=== PATIENT | female | born 1965 | race Caucasian/White ===

== ENCOUNTER → 2016-05-25 | Outpatient (CLI) | payer BC ==
--- NOTE | 2016-05-25 13:34 | MAMMOGRAPHY REPORT ---
BILATERAL DIGITAL SCREENING MAMMOGRAM TOMOSYNTHESIS WITH CAD: 05/25/2016 CLINICAL HISTORY: Routine screening. Patient has no complaints. TECHNIQUE: Breast tomosynthesis in addition to standard 2D mammography was performed. Current study was also evaluated with a Computer Aided Detection (CAD) system. COMPARISON: Comparison is made to exams dated: 06/02/2015 mammogram, 05/20/2015 mammogram, 05/14/2014 m ammogram, 05/13/2013 mammogram, 05/07/2012 mammogram, and 04/27/2011 mammogram - [facility] enter. BREAST COMPOSITION: The tissue of both breasts is heterogeneously dense, which may obscure small ma sses. FINDINGS: No suspicious masses, calcifications, or areas of architectural distortion are noted in e ither breast. There has been no significant interval change compared to prior exams. IMPRESSION: ACR BI-RADS CATEGORY 1: NEGATIVE There is no mammographic evidence of malignancy. A 1 year screening mammogram is recommended. The p atient will receive written notification of the results. Approximately 10% of breast cancers are not detected with mammography. A negative mammographic repor t should not delay biopsy if a clinically suggestive mass is present. Lissa Pantoja M.D. /:05/25/2016 12:35:21 Air Bag Builder: Romero ZAYAS(R)(M), [facility] letter sent: Normal 1/2 BI-RADS Code: ACR BI-RADS Category 1: Negative
== END | disposition home or self-care (01) ==
LOC: C.MAMM 09:07
PROVIDERS: ATTEND Obstetrics & Gynecology
DX: Z12.31 Encounter for screening mammogram for malignant neoplasm of breast (principal)

== ENCOUNTER → 2017-04-12 | Outpatient (CLI) | payer OTHER ==
[~2017-04-12] MED LIST: ASPI81TA28 PO; ATOR-22 PO; ATV/1 PO; CHOL1000 PO; DULO60CA44 PO; KETO10TA PO; LISI-725 PO; METF-384 PO; MTR800 PO; TRAM-10 PO; ZOLP5TAB PO
[2017-04-12 13:50] LABS: BASO % 0.6 %; BASO ABS # 0.04 K/uL (0-0.2); EOS % 1.5 %; EOS ABS # 0.11 K/uL (0-0.5); HEMATOCRIT 39.1 % (37-47); HEMOGLOBIN 12.7 g/dL (12.0-16.0); IG# 0.01 K/uL (0.00-0.02); LYMPH % 31.7 %; MEAN CELL VOLUME 84.3 fL (80-100); MEAN CORPUSCULAR HEMOGLOBIN 27.4 pg (25-34); MEAN CORPUSCULAR HGB CONC 32.5 g/dl (32-36); MEAN PLATELET VOLUME 9.4 fL (7.4-10.4); MONO % 6.9 %; NEUT % 59.2 %; PLATELET COUNT 348 K/uL (130-400); RED CELL DISTRIBUTION WIDTH CV 13.6 % (11.5-14.5); RED CELL DISTRIBUTION WIDTH SD 41.6 fL (36.4-46.3); WHITE BLOOD COUNT 7.26 K/uL (4.8-10.8)
[2017-04-12 14:17] LABS: ALT/SGPT 19 U/L (12-78); AST/SGOT 9 U/L (15-37); BLOOD UREA NITROGEN 19 mg/dl (7-18); CALCIUM 9.3 mg/dl (8.5-10.1); CARBON DIOXIDE 27 mmol/L (21-32); CREATININE 0.86 mg/dl (0.60-1.20); GLUCOSE 84 mg/dl (70-99); POTASSIUM 4.4 mmol/L (3.5-5.1); SODIUM 135 mmol/L (136-145)
[2017-04-12 14:19] LABS: ALKALINE PHOSPHATASE 62 U/L (45-117); TOTAL PROTEIN 7.5 gm/dl (6.4-8.2)
== END | disposition home or self-care (01) ==
LOC: C.LABBC 11:43
PROVIDERS: ATTEND Internal Medicine
DX: M54.5 Low back pain (principal)

== ENCOUNTER → 2017-04-18 | Day surgery (SDC) | payer OTHER ==
[2017-04-12 12:19] VITALS: Ht 162.6 cm; Wt 65.9 kg
[~2017-04-18] VITALS: Ht 162.6 cm; Wt 65.9 kg
[~2017-04-18] MED LIST changes: +ATROPINE SULFATE 0.1 MG/ML 5ML SYR IV PRN; +CEFAZOLIN 1000MG IV PUSH 7.5 ML IV SCH; +CEFAZOLIN SOD 1 GM VIAL ONE; +CEFAZOLIN SOD 1000MG/7.5 ML IV PUSH IV SCH; +DEXAMETHASONE SOD INJ 4 MG/ML VIAL ONE; +EpHEDrine SULFATE INJ 50 MG/ML AMP IV PRN; +EpINEphrine INJ 1MG/ML AMP 1 MG/ML AMP ONE; +FENTANYL CITRATE INJ 50 MCG/1 ML 2 ML VIAL ONE; +FLUMAZENIL 0.1 MG/1 ML 10 ML VIAL IV PRN; +HYDROCODONE/ACETAMIN 5/325MG TAB PO PRN; +HYDROmorphone INJ 2 MG/ML SYR/VIAL IV PRN; +KETOROLAC TROMETHAMINE 30 MG/ML VIAL ONE; +LABETALOL HCL IV 5 MG/ML 20ML IV PRN; +LACTATED RINGER'S 1000ML 1,000 ML IV SCH; +LIDOCAINE HCL 2% 2 ML VIAL (20MG/ML) ONE; +MIDAZOLAM HCL 1 MG/ML 2ML VIAL ONE; +NALOXONE HCL 0.4 MG/1 ML VIAL/CARP IV PRN; +ONDANSETRON INJ 2 MG/ML 2 ML VIAL IV PRN; +ONDANSETRON INJ 2 MG/ML 2 ML VIAL ONE; +PHENYLEPHRINE 100MCG/ML 5ML SYR IV PRN; +PROPOFOL IV EMULSION 10 MG/ML 20 ML VIAL IV ONE; +ROPIVACAINE 0.5% 5 MG/ML 30 ML VIAL ONE; +SODIUM CHLORIDE 0.9% 1000ML 1,000 ML IV SCH
--- NOTE | 2017-04-18 11:54 | History & Physical Bridge - SC ---
H&P Re-Evaluation Bridge Note: I have examined the patient, reviewed the History & Physical and in the interval since the performance of the History & Physical I have noted the following changes of clinical significance: No changes noted
--- NOTE | 2017-04-18 14:06 | [facility] Post Operative Brief Note ---
Immediate Operative Summary Operative Date Apr 18, 2017. Pre-Operative Diagnosis Right Knee ACL Rupture Post-Operative Diagnosis same Procedure(s) Performed Right Knee Arthroscopic Anterior Cruciate Ligament Reconstruction with Hamstring Autograft Surgeon Dr. Dat Spencer Disc Pad Grinder Surgeon(s) Law Tellez PA-C Estimated Blood Loss MINIMAL Findings Consistent with Post-Op Diagnosis Specimens none Drains None Anesthesia Type General Regional Complication(s) none Disposition Accompanied Pt To Recovery: yes Disposition: Recovery Room / PACU
--- NOTE | 2017-04-18 14:07 | Discharge Instructions-SurgCtr ---
Discharge Instructions Date of Service Apr 18, 2017. Visit Reason for Visit: Right Knee Acl Rupture Discharge Discharge Diagnosis / Problem: Right ACL tear Discharge Goals Goal(s): Decrease discomfort, Improve function, Therapeutic intervention Medications Stopped Medications Name(s): No blood thinners Activity Recommendations Activity Limitations: per Instructions/Follow-up section Weightbearing Status: Right weightbearing (as tolerated with brace ) Anesthesia . Post Anesthesia Instructions: If you have had General Anesthesia or IV Sedation: * Do not drive today. * Resume driving when surgeon permits. * Do not make important decisions or sign legal documents today. * Call surgeon for: 1. Temperature elevations greater than 101 degrees F. 2. Uncontrollable pain. 3. Excessive bleeding. 4. Persistent nausea and vomiting. 5. Medication intolerance (nausea, vomiting or rash). * For nausea and vomiting use only clear liquids such as: tea, soda, bouillon until nausea subsides, then gradually increase diet as tolerated. * If you have any concerns or questions, call your surgeon's office. If physician is unavailable and it is an emergency, call 911 or go to the nearest emergency room. . Instructions / Follow-Up Instructions / Follow-Up MEDICATIONS: * Resume previous medications unless instructed otherwise by your surgeon. * Always take pain medication on a full stomach or with food to avoid upset stomach. * Do not drink alcohol or drive while taking narcotics. * Ibuprofen or Tylenol may be taken if narcotic not needed. No ibuprofen while taking toradol SPECIAL CARE INSTRUCTIONS: __ None _x_ Keep extremity elevated and iced x 48 hours; apply ice 20-30 minutes 8-10 times/day. May remove at night. _x_ Crutches __ May discard when able _x_ Brace/Post-op shoe __ 24 hrs/day __ Remove at night _x_ Dressing __ Maintain until seen in office, may shower with plastic over site x__ Remove dressings in 24-48 hours and then may shower _x_ Cover incisions with band-aids after showering _x_ Do not remove steri-strips Call physician if chills or temperature rises above 102 degrees or pain unrelieved by prescribed pain medications. Office [phone] follow up in 2 weeks Diet Recommendations Home Diet: resume previous diet Procedures Procedures Performed: Right Knee Arthroscopic Anterior Cruciate Ligament Reconstruction with Hamstring Autograft Pending Studies Studies pending at discharge: no Medical Emergencies . Who to Call and When: Medical Emergencies: If at any time you feel your situation is an emergency, please call 911 immediately. . Non-Emergent Contact Non-Emergency issues call your: Surgeon . . "Provider Documentation" section prepared by Allan Tellez. .
[2017-04-18] MEDS: FENTANYL CITRATE INJ 50 MCG/1 ML 2 ML VIAL IV PRN ×4 (14:14→14:55)
[2017-04-18] MEDS: MEPERIDINE HCL 25 MG/ML CARP IV PRN ×2 (14:21→14:40)
[2017-04-18 15:11] VITALS: TEMP 36.7
--- NOTE | 2017-04-18 15:14 | Anesthesia Progress Nt - [facility] ---
Anesthesia Post Op Note Date & Time Apr 18, 2017 at 15:14 Vital Signs Pain Intensity: 3 Vital Signs Past 12 Hours Date Time Temp Pulse Resp B/P (MAP) Pulse Ox O2 Delivery O2 Flow Rate FiO2 04/18/17 15:03 93 12 04/18/17 15:03 89 12 100 04/18/17 15:01 140/82 04/18/17 15:00 36.7 93 14 140/82 95 Room Air 04/18/17 14:58 99 12 04/18/17 14:58 99 12 91 04/18/17 14:57 94 16 98 04/18/17 14:57 92 16 04/18/17 14:56 139/78 04/18/17 14:52 95 21 97 04/18/17 14:52 93 21 04/18/17 14:51 136/76 04/18/17 14:47 100 7 95 04/18/17 14:47 99 7 04/18/17 14:46 139/80 04/18/17 14:42 96 14 04/18/17 14:42 98 14 94 04/18/17 14:41 145/82 04/18/17 14:37 88 11 04/18/17 14:37 87 11 100 04/18/17 14:36 146/91 04/18/17 14:32 96 20 04/18/17 14:32 96 20 100 04/18/17 14:31 144/82 04/18/17 14:27 94 17 100 04/18/17 14:27 93 17 04/18/17 14:26 88 10 149/85 100 04/18/17 14:26 91 10 04/18/17 14:21 93 11 157/75 100 04/18/17 14:21 94 11 04/18/17 14:16 91 14 133/110 100 04/18/17 14:16 92 14 04/18/17 14:15 37.1 93 16 151/92 100 Mask 9 04/18/17 14:11 93 04/18/17 14:11 93 14 146/90 100 04/18/17 14:07 151/92 04/18/17 14:06 96 04/18/17 14:06 96 100 04/18/17 12:27 73 100 04/18/17 12:27 74 04/18/17 12:26 129/81 04/18/17 12:22 78 04/18/17 12:22 79 100 04/18/17 12:21 128/82 04/18/17 12:17 73 04/18/17 12:17 72 100 04/18/17 12:16 73 128/71 100 04/18/17 12:16 73 04/18/17 12:11 76 123/77 100 04/18/17 12:11 76 04/18/17 12:10 131/82 04/18/17 10:58 36.8 93 16 129/80 (96) 98 Room Air Notes Mental Status: alert / awake / arousable, participated in evaluation Pt Amnestic to Procedure: Yes Nausea / Vomiting: adequately controlled Pain: adequately controlled Airway Patency, RR, SpO2: stable & adequate BP & HR: stable & adequate Hydration State: stable & adequate Anesthetic Complications: no major complications apparent
[2017-04-18 15:50] VITALS: BP 119/78; PULSE 89; O2SAT 99
--- NOTE | 2017-04-18 21:54 | OPERATIVE REPORT ---
DATE OF OPERATION: 04/18/2017 SURGEON: Alejandro Spencer MD. SHIPPING ROOM SUPERVISOR: BERYL Wilks. PREOPERATIVE DIAGNOSES: 1. Right anterior cruciate ligament deficient knee. 2. Right knee mild degenerative joint disease. POSTOPERATIVE DIAGNOSES: Same. PROCEDURE PERFORMED: 1. Right knee exam under anesthesia. 2. Right knee diagnostic arthroscopy. 3. Right knee arthroscopic ACL reconstruction with 7/8 mm semitendinosus/gracilis autograft. COMPLICATIONS: None. ESTIMATED BLOOD LOSS: Minimal. TOURNIQUET TIME: 52 minutes at 300 mmHg. ANESTHESIA: General with adductor canal block. DRAINS: None. SPECIMENS: None. OPERATIVE INDICATIONS: The patient is a 52-year-old very active female who injured her knee about 7 weeks ago skiing. She was seen and diagnosed with an ACL tear which was confirmed by MRI. She had restored knee range of motion. X-rays revealed minimal DJD. The patient elected to proceed with surgical treatment. OPERATIVE FINDINGS: Examination under anesthesia of the right knee revealed minimal knee effusion. Range of motion was full extension to 135+ degrees of flexion. She had a positive Adry, grade 2 pivot at worst and no varus or valgus instability. There was no posterolateral rotatory instability. She had a markedly significant Adry in her soft endpoint, but not a real severe pivot shift. Jordyn's is negative. ARTHROSCOPIC FINDINGS: Arthroscopic findings revealed minimal knee effusion. She has some mild age-related changes to the patellofemoral joint. In the intercondylar notch, the ACL was torn. The PCL was intact. In the medial compartment, there were some very mild age-related changes to the cartilage. In the lateral compartment, there were some mild age-related changes. No signs of meniscal tear. OPERATIVE PROCEDURE: The patient was taken to the operating room, identified and placed on the operating table in supine position. All contact areas were appropriately padded. IV antibiotics were provided by anesthesia team. An adductor canal block had been provided in the holding area. General anesthetic was implemented by anesthesia team. IV antibiotics were provided. A right thigh tourniquet was then placed. The right knee was then examined under anesthesia with the findings as described above. The right leg was then prepped and draped in the usual sterile fashion. The right leg was elevated and exsanguinated with Esmarch and tourniquet was placed at 300 mmHg. About 4-5 cm incision was made directly over the hamstring tendons. Sharp dissection was carried out through the subcutaneous tissue down to the level of the sartorius fascia. The subcutaneous tissues were mobilized circumferentially. An oblique incision was made in the sartorius fascia above the hamstring tendons. The hamstring tendons were then taken sharply off the anterior face of the tibia. A semitendinosis and gracilis tendons were isolated. A #2 Tycron whipstitch was placed in the end of each tendon. Each tendon was then harvested with a closed ended tendon stripper. They were taken to the back table and cut to 21 cm in length. The muscle was stripped off the opposite end of the tendon. A similar #2 Ticron whipstitch was placed in the opposite end of the tendon. The tendons were then folded over and the femoral side fit through a 7 tunnel and the tibial side through an 8. The graft was then placed on the graft board and 10 pounds of tension were applied until ready for implantation. During graft preparation, routine right knee arthroscopy was then performed through the typical anteromedial and anterolateral portals. A superolateral outflow portal was established for outflow. The remnant of the ACL was excised. A small notchplasty was performed. I examined the knee, there was no meniscal work needed. Attention was then drawn to the ACL reconstruction. With the use of the tibial guide set at 50 degrees, a guidewire was placed in the area of the proposed tibial tunnel. This was overreamed with an 8 mm solid reamer. The tunnel was cleaned of all debris. A 6 mm over the top guide was then placed in the anterior medial portal and the knee was maximally flexed. A guidewire was placed in the area of the proposed femoral tunnel. It was overdrilled with a 4.5 mm Endobutton drill bit. The total tunnel length measured about 32 mm in length. A 10 mm closed loop Endobutton was selected. The tunnel was then overdrilled with a 7 mm acorn reamer for a distance of 28 mm. The tunnel was cleaned of all debris. The graft was then looped over a 10 mm closed loop Endobutton. A Beath pin was then used to pass the graft through the tibial tunnel up into the femoral tunnel and the Endobutton was flipped. The knee was cycled several times. The knee was brought out into full extension and there was no impingement. The graft was then tensioned using the Intrafix tensioner at 20 pounds of tension. The graft was tensioned and then fixed distally with a Biocryl Intrafix small sheath followed by a 6/8 Biocryl Intrafix screw. The knee was examined and there was no Adry and no pivot. The scope was placed back in the knee joint and the graft was examined. It was appropriately tensioned in flexion and extension. All extraneous debris was removed. Attention was then drawn toward closing. The arthroscopic portals were closed with 3-0 Prolene suture in simple fashion. The knee was then injected with 30 mL of 0.5% ropivacaine with epinephrine and 30 mg of Toradol. I then cut the graft short at the exit end of the tibial tunnel. The sartorius fascia was repaired with 0 Vicryl suture in an interrupted [id number] fashion. The tourniquet was then let down for a tourniquet time of 52 minutes. Hemostasis was assured with use of electrocautery. The wound was then irrigated again. The subcutaneous tissues were then closed with 2-0 Dexon suture in a buried interrupted fashion. Skin was closed with 3-0 Prolene suture in a subcuticular fashion. The leg was then cleaned and dried and a sterile dressing composed of Steri-Strips, Xeroform, 4 x 4s, sterile ABD pad, sterile cast padding, Osbaldo bandage, cold pack and knee immobilizer applied. The patient then brought out of general anesthesia and transferred to the recovery room in stable condition. The patient tolerated the procedure well with no complications. All needle and sponge counts were correct at the end of the operation. I attest to the content of the Intraoperative Record and any orders documented therein. Any exceptions are noted below. KATY
== END | disposition home or self-care (01) ==
LOC: X.SURG 10:36
PROVIDERS: ATTEND Orthopaedic Surgery Sports Medicine
DX: S83.511A Sprain of anterior cruciate ligament of right knee, initial encounter (principal); X58.XXXA Exposure to other specified factors, initial encounter; Y93.23 Activity, snow (alpine) (downhill) skiing, snowboarding, sledding, tobogganing and snow tubing; I10 Essential (primary) hypertension; E78.5 Hyperlipidemia, unspecified; F41.9 Anxiety disorder, unspecified

== ENCOUNTER → 2017-05-31 | Outpatient (CLI) | payer OTHER ==
[~2017-05-31] MED LIST changes: -ATROPINE SULFATE 0.1 MG/ML 5ML SYR IV PRN; -CEFAZOLIN 1000MG IV PUSH 7.5 ML IV SCH; -CEFAZOLIN SOD 1 GM VIAL ONE; -CEFAZOLIN SOD 1000MG/7.5 ML IV PUSH IV SCH; -DEXAMETHASONE SOD INJ 4 MG/ML VIAL ONE; -EpHEDrine SULFATE INJ 50 MG/ML AMP IV PRN; -EpINEphrine INJ 1MG/ML AMP 1 MG/ML AMP ONE; -FENTANYL CITRATE INJ 50 MCG/1 ML 2 ML VIAL ONE; -FLUMAZENIL 0.1 MG/1 ML 10 ML VIAL IV PRN; -HYDROCODONE/ACETAMIN 5/325MG TAB PO PRN; -HYDROmorphone INJ 2 MG/ML SYR/VIAL IV PRN; -KETO10TA PO; -KETOROLAC TROMETHAMINE 30 MG/ML VIAL ONE; -LABETALOL HCL IV 5 MG/ML 20ML IV PRN; -LACTATED RINGER'S 1000ML 1,000 ML IV SCH; -LIDOCAINE HCL 2% 2 ML VIAL (20MG/ML) ONE; -MIDAZOLAM HCL 1 MG/ML 2ML VIAL ONE; -MTR800 PO; -NALOXONE HCL 0.4 MG/1 ML VIAL/CARP IV PRN; -ONDANSETRON INJ 2 MG/ML 2 ML VIAL IV PRN; -ONDANSETRON INJ 2 MG/ML 2 ML VIAL ONE; -PHENYLEPHRINE 100MCG/ML 5ML SYR IV PRN; -PROPOFOL IV EMULSION 10 MG/ML 20 ML VIAL IV ONE; -ROPIVACAINE 0.5% 5 MG/ML 30 ML VIAL ONE; -SODIUM CHLORIDE 0.9% 1000ML 1,000 ML IV SCH
--- NOTE | 2017-05-31 14:41 | MAMMOGRAPHY REPORT ---
BILATERAL DIGITAL SCREENING MAMMOGRAM TOMOSYNTHESIS WITH CAD: 05/31/2017 CLINICAL HISTORY: Routine screening. Patient has no complaints. TECHNIQUE: Breast tomosynthesis in addition to standard 2D mammography was performed. Current study was also evaluated with a Computer Aided Detection (CAD) system. COMPARISON: Comparison is made to exams dated: 05/25/2016 mammogram, 06/02/2015 ultrasound, 06/02/2015 ma mmogram, 05/20/2015 mammogram, 05/14/2014 mammogram, and 05/13/2013 mammogram - [facility] nter. BREAST COMPOSITION: The tissue of both breasts is heterogeneously dense, which may obscure small mas ses. FINDINGS: No suspicious masses, calcifications, or areas of architectural distortion are noted in ei ther breast. There has been no significant interval change compared to prior exams. IMPRESSION: ACR BI-RADS CATEGORY 1: NEGATIVE There is no mammographic evidence of malignancy. A 1 year screening mammogram is recommended. The pa tient will receive written notification of the results. Approximately 10% of breast cancers are not detected with mammography. A negative mammographic report should not delay biopsy if a clinically suggestive mass is present. Lissa Pantoja M.D. /:05/31/2017 09:41:38 Shallot Packer: Andreia Rousseau, [facility] letter sent: Normal 1/2 BI-RADS Code: ACR BI-RADS Category 1: Negative
== END | disposition home or self-care (01) ==
LOC: C.MAMM 09:02
PROVIDERS: ATTEND Obstetrics & Gynecology
DX: Z12.31 Encounter for screening mammogram for malignant neoplasm of breast (principal)

== ENCOUNTER → 2017-09-25 | Outpatient (CLI) | payer OTHER ==
--- NOTE | 2017-09-25 11:14 | DIAGNOSTIC IMAGING REPORT ---
CHEST 2 VIEWS ROUTINE CLINICAL HISTORY: I10 [id number] Dysmetabolic syndrome XR00.0 Sinus tachycardia COMPARISON STUDY: 01/04/2006 FINDINGS: The cardiac and mediastinal contours are normal. There is no evidence of focal pulmonary consolidation. There is no evidence of failure. No pleural effusions are visualized.[ IMPRESSION: No active disease in the chest. Electronically signed by: Gilberto Elizondo M.D. 09/25/2017 11:13 AM Dictated Date/Time: 09/25/2017 11:12 AM
[2017-09-25 12:02] LABS: BASO % 0.6 %; BASO ABS # 0.05 K/uL (0-0.2); EOS % 1.3 %; HEMATOCRIT 39.2 % (37-47); HEMOGLOBIN 12.6 g/dL (12.0-16.0); IG# 0.03 K/uL (0.00-0.02); LYMPH % 25.8 %; LYMPH ABS # 2.03 K/uL (1.2-3.4); MEAN CORPUSCULAR HEMOGLOBIN 26.4 pg (25-34); MEAN CORPUSCULAR HGB CONC 32.1 g/dl (32-36); MEAN PLATELET VOLUME 9.2 fL (7.4-10.4); MONO % 6.4 %; NEUT % 65.5 %; NEUT ABS # 5.15 K/uL (1.4-6.5); PLATELET COUNT 454 K/uL (130-400); RED CELL DISTRIBUTION WIDTH CV 14.2 % (11.5-14.5); RED CELL DISTRIBUTION WIDTH SD 42.5 fL (36.4-46.3); WHITE BLOOD COUNT 7.86 K/uL (4.8-10.8)
[2017-09-25 12:40] LABS: ALBUMIN 3.7 gm/dl (3.4-5.0); ALKALINE PHOSPHATASE 60 U/L (45-117); ALT/SGPT 40 U/L (12-78); AST/SGOT 21 U/L (15-37); BLOOD UREA NITROGEN 13 mg/dl (7-18); CARBON DIOXIDE 28 mmol/L (21-32); CREATININE 0.79 mg/dl (0.60-1.20); GLUCOSE 82 mg/dl (70-99); POTASSIUM 4.6 mmol/L (3.5-5.1); SODIUM 132 mmol/L (136-145); TOTAL PROTEIN 6.9 gm/dl (6.4-8.2)
== END | disposition home or self-care (01) ==
LOC: C.LAB 10:44
PROVIDERS: ATTEND Internal Medicine
DX: I10 Essential (primary) hypertension (principal); E88.81 Metabolic syndrome and other insulin resistance; R00.0 Tachycardia, unspecified; M79.1 Myalgia